=== PATIENT | female | born 1945 | race Caucasian/White ===

== ENCOUNTER → 2016-11-16 | Day surgery (SDC) | payer MEDICARE, OTHER ==
[~2016-11-16] VITALS: Ht 152.4 cm; Wt 45.5 kg
[~2016-11-16] MED LIST: ASPI81CH CHEW; BUPIVACAINE HCL PF 0.5% 30 ML VIAL ONE; CEPH-459 PO; CHLORHEXIDINE GLUCONATE 2 % 1 PACK (2 CLOTHS) TOPICAL PRN; INSULIN HUMAN REGULAR 1,000 UNITS/10 ML VIAL SQ PRN; LACTATED RINGER'S 1000 ML IV PRN; LIDOCAINE HCL 2% 50 ML VIAL ONE; METOPROLOL TARTRATE 25 MG TAB PO PRN; NEOMYCIN/POLYMYXIN 1 ML G.U. IRRIGANT ONE; NORC5TAB PO; POVIDONE IODINE 5% (ANTISEPSIS KIT) 4 APPLICATIONS EACH NARE PRN; PROPOFOL 200 MG/20 ML AMP IV ONE; ROSU5 PO; SODIUM CHLORID 0.9% 500 ML IV PRN; ZETI10TA5 PO; ceFAZolin 1,000 MG/NS 100 ML IV SCH; ePHEDrine/NS 25 MG/5 ML SYR IV ONE
[2016-11-16 10:06] VITALS: BP 137/85; PULSE 62; RESP 20; TEMP 97.5; O2SAT 100
[2016-11-16 10:19] LABS: HEMATOCRIT 44.9 % (35.0-46.0); MEAN CELL VOLUME 88.6 FL (80.0-100.0); MEAN CORPUSCULAR HEMOGLOBIN 28.6 PG (27.0-34.0); MEAN CORPUSCULAR HGB CONC 32.3 % (32.0-36.0); PLATELET COUNT 322 TH/MM3 (150-450); RED BLOOD COUNT 5.07 MIL/MM3 (4.00-5.30); RED CELL DISTRIBUTION WIDTH 13.4 % (11.6-17.2); REVIEW FLAG FINAL; WHITE BLOOD COUNT 6.4 TH/MM3 (4.0-11.0)
[2016-11-16 12:30] VITALS: BP 124/76; PULSE 62; RESP 16; TEMP 97; O2SAT 97
--- NOTE | 2016-11-17 15:39 | EKG ---
Date Performed: 11/16/2016 Time Performed: 10:37:31 PTAGE: 71 years EKG: SINUS BRADYCARDIA Poor initial anterior forces, which may be a normal variant ABNORMAL ECG NO PREVIOUS TRACING DOCTOR: Fred Kapoor Interpretating Date/Time 11/17/2016 15:37:53
--- NOTE | 2016-11-17 23:26 | MP ---
cc: EZ LOGAN MD DATE OF SURGERY 11/16/16 PREOPERATIVE DIAGNOSIS Melanocytic neoplasm of skin, right hand PROCEDURE Right dorsal hand and wide local excision with minimum 5 mm margin SURGEON Bhargavi Logan III, MD PROCEDURE IN DETAIL The patient was brought to the operating room, placed supine on the operating room table. After the correct site and side of surgery were verified by members of each team in the room multiple times including the patient and myself and after adequate preoperative markings and preoperative written consent were verified by everyone and after adequate preoperative time-out was performed to everyone's satisfaction, after adequate IV sedation had been achieved, the right upper extremity prepped and draped in traditional sterile surgical fashion. The site of the shave biopsy was identified under loupe visualization as well as in preoperative discussion with the patient. Five mm margins were measured out in all directions with a ruler and then an ellipse transverse oriented was made to enhance closure. The limb was elevated and pressure was held on the brachial artery for 1 minute and a highly placed well-padded axillary tourniquet was inflated to 200 mmHg for a total 15 minutes. The skin was excised in full thickness down to the subcutaneous tissue which was non-adherent and was passed off the table as a specimen with a black suture in the distal margin and a blue suture in the radial margin. Sterile water was then used to thoroughly irrigate the area. New gloves and clean instruments were used. The skin edges were then reapproximated using deep 4-0 Vicryl sutures and the skin edges reapproximated with 4-0 nylon sutures in a running fashion. Dog ears were excised for cosmetic purposes. The hand and arm were thoroughly cleansed and dried. Betadine and Adaptic dressings applied on top of the wound. After tourniquet release, the hand and all the fingers became immediately soft, pink, warm and had brisk capillary refill of about 2 seconds. A bulky sterile dressing was applied. The patient was awaken from anesthesia and transported to the Post Anesthesia Care Unit awake in stable condition at the end of the case. Sponge, needle and instrument counts were correct at the end of the case as reported by nurses in the room. Ez Logan III, MD LCB/SA /12:00 PM /11:16 PM
== END | disposition home or self-care (01) ==
LOC: PHSDC 09:04
PROVIDERS: ATTEND Orthopaedic Surgery Hand Surgery
DX: L57.0 Actinic keratosis (principal); E78.5 Hyperlipidemia, unspecified; Z01.818 Encounter for other preprocedural examination; Z01.810 Encounter for preprocedural cardiovascular examination
CPT/HCPCS: 00400; 11420; 85027; 88305; 93005; J0690; J3010; J7120